=== PATIENT | female | born 1985 | race African-American/Black ===

== ENCOUNTER 2021-03-04 21:46 | Emergency (ER) | payer OTHER ==
[2021-03-04 22:04] VITALS: BP 119/78; PULSE 84; TEMP 99; BMI 33.6
[2021-03-04] MEDS ORDERED: SODIUM CHLORIDE 0.9% 1000 ML INFUS.BAG IV ONE (22:50)
[2021-03-04 23:01] LABS: BASO % 1.3 % (0-2.0); EOS % 2.3 % (0-4.5); HEMATOCRIT 40.7 % (32.4-45.2); HEMOGLOBIN 13.4 GM/dl (10.7-15.3); LYMPH % 29.9 % (8-40); MCH 28.8 pg (25.7-33.7); MCHC 32.9 g/dl (32.0-36.0); MEAN CELL VOLUME 87.6 fl (80-96); MEAN PLT VOLUME 9.4 fl (7.5-11.1); MONO % 6.7 % (3.8-10.2); NEUT % 59.8 % (42.8-82.8); PLATELET COUNT 229 10^3/uL (134-434); RBC 4.65 M/mm3 (3.60-5.2); RDW 12.5 % (11.6-15.6); WHITE BLOOD COUNT 6.5 K/mm3 (4.0-10.8)
[2021-03-04 23:07] LABS: EPITHELIAL CELLS FEW /hpf
[2021-03-04 23:14] LABS: BILIRUBIN,TOTAL 0.5 mg/dl (0.2-1); CALCIUM 8.8 mg/dl (8.5-10); CREATININE 0.6 mg/dl (0.55-1.3); TOT PROT 7.9 g/dl (6.4-8.2)
== END 2021-03-05 00:07 | disposition home or self-care (01) ==
LOC: FER 21:46
DX: R42 Dizziness and giddiness (principal)
CPT/HCPCS: 36415; 70450-TC; 80053; 81003; 81015; 81025; 85025; 87086; 99284-25; C9803; U0003; U0005

== ENCOUNTER 2021-07-13 16:09 | Emergency (ER) | payer BC, OTHER ==
[2021-07-13 17:08] VITALS: BP 120/72; PULSE 67; TEMP 98.4; BMI 33.6
== END 2021-07-13 18:58 | disposition home or self-care (01) ==
LOC: JER 16:09
PROC: 3E023GC Introduction of Other Therapeutic Substance into Muscle, Percutaneous Approach (ICD-10-PCS; principal; 2021-07-13)
DX: M94.0 Chondrocostal junction syndrome [Tietze] (principal)
CPT/HCPCS: 93005; 93010; 96372; 99284-25